=== PATIENT | female | born 1990 | race Caucasian/White ===

== ENCOUNTER 2019-04-09 11:24 | Emergency (ER) | payer SELFPAY ==
[~2019-04-09] VITALS: Ht 175.3 cm; Wt 79.0 kg
[2019-04-09 12:19] VITALS: BP 108/51
== END 2019-04-10 19:10 | disposition home or self-care (01) ==
LOC: ER 11:37
DX: F15.10 Other stimulant abuse, uncomplicated (principal); R11.2 Nausea with vomiting, unspecified; R00.0 Tachycardia, unspecified; F31.9 Bipolar disorder, unspecified; Z90.49 Acquired absence of other specified parts of digestive tract; Z90.89 Acquired absence of other organs
CPT/HCPCS: 93005; 99283